=== PATIENT | male | born 1985 | race Caucasian/White ===

== ENCOUNTER 2017-06-05 23:35 | Emergency (ER) | payer SELFPAY ==
[~2017-06-05 23:35] MED LIST: BACTROBAN2% TP; CLINDAMYCIN HC300 MG PO; COL100 PO; HIBICLENS TP; LAC PO; NOR10T PO
[2017-06-06 00:23] VITALS: BP 121/70
== END 2017-06-06 00:23 | disposition home or self-care (01) ==
LOC: ED 23:35
DX: R21 Rash and other nonspecific skin eruption (principal); Z88.0 Allergy status to penicillin